=== PATIENT | female | born 1980 | race African-American/Black ===

== ENCOUNTER 2016-05-16 23:16 | Emergency (ER) | payer SELFPAY ==
[~2016-05-16] VITALS: Ht 170.2 cm; Wt 154.2 kg
--- NOTE | 2016-05-17 00:10 | PHYS DOC ---
Past Medical History Past Medical History: Anxiety, Bronchitis, Depression, Other Additional Past Medical Histor: ptsd Past Surgical History: Additional Past Surgical Histo: c-sec 2006 and 2009 Alcohol Use: Heavy Drug Use: Cocaine, Marijuana Adult General Chief Complaint Chief Complaint: UPPER EXTREMITY PAIN [facility] HPI Patient is a 35 year old female with history of bronchitis asthma, depression and anxiety who presents today with complaints of left upper tarso pain including upper extremity that has been going on for months. Patient states the pain is worse when she is moving her left upper extremity. She states she sleeps on her left side including the left upper extremity and that could be causing the pain too. She states she has gained weight recently and as result of sleeping on her left upper extremity the weight could also be increasing her pain to the left upper extremity. She states she's been under a lot of stress recently especially from work and personal life. She states she snorts cocaine and smokes marijuana on frequent basis. She states she also smokes cigarettes. The last time she used this drugs is 2 days ago. Patient denies any alcohol use. Denies any chance she is , she states she has a Mirena. She also states she is a smoker. Patient denies any fever coughing or congestion. PCP none Review of Systems Review of Systems Constitutional: Denies fever or chills [] Eyes: Denies change in visual acuity, redness, or eye pain [] HENT: Denies nasal congestion or sore throat [] Respiratory: Denies cough or shortness of breath [] Cardiovascular: No additional information not addressed in HPI [] GI: Denies abdominal pain, nausea, vomiting, bloody stools or diarrhea [] : Denies dysuria or hematuria [] Musculoskeletal: left side pain Integument: Denies rash or skin lesions [] Neurologic: Denies headache, focal weakness or sensory changes [] Endocrine: Denies polyuria or polydipsia [] Allergies Allergies Allergies Coded Allergies Type Severity Reaction Last Updated Verified No Known Drug Allergies 03/20/13 No Physical Exam Physical Exam Constitutional: Well developed, well nourished, no acute distress, non-toxic appearance. [] HENT: Normocephalic, atraumatic, bilateral external ears normal, oropharynx moist, no oral exudates, nose normal. [] Eyes: PERRLA, EOMI, conjunctiva normal, no discharge. [] Neck: Normal range of motion, no tenderness, supple, no stridor. [] Cardiovascular:Heart rate regular rhythm, no murmur [] Lungs & Thorax: Bilateral breath sounds clear to auscultation [] Abdomen: Bowel sounds normal, soft, no tenderness, no masses, no pulsatile masses. [] Skin: Warm, dry, no erythema, no rash. [] Back: No tenderness, no CVA tenderness. [] Extremities: No tenderness, no cyanosis, no clubbing, ROM intact, no edema. [] Neurologic: Alert and oriented X 3, normal motor function, normal sensory function, no focal deficits noted. [] Psychologic: Affect normal, judgement normal, mood normal. [] Current Patient Data Vital Signs Vital Signs Date Time Temp Pulse Resp B/P Pulse Ox O2 Delivery O2 Flow Rate FiO2 05/16/16 23:38 98.5 82 18 155/81 100 Room Air 98.5 Lab Values Laboratory Tests Test 05/17/16 00:30 05/17/16 00:31 05/17/16 00:32 POC Hemoglobin 12.6g/dL (12-15) POC Hematocrit 37% (36-40) POC Sodium 142mmol/L (135-145) POC Potassium 3.8mmol/L (3.5-5.0) POC Chloride 103mmol/L (98-110) POC Total CO2 30mmol/L (23-32) Anion Gap 14mmol/L (6-14) POC Blood Urea Nitrogen 16mg/dL (8-26) POC Creatinine 1.2mg/dL (0.5-1.4) Glucose Level 99mg/dL (70-99) POC Ionized Calcium (Drew) 1.15mmol/L (1.13-1.32) POC Urine HCG, Qualitative hcg negative (Negative) POC Troponin I 0.00ng/ml (<0.08) Laboratory Tests 05/17/16 00:30 EKG EKG [] Radiology/Procedures Radiology/Procedures [] Course & Med Decision Making Course & Med Decision Making Pertinent Labs and Imaging studies reviewed. (See chart for details) Patient is in the ED with complaints of pain on her left upper side including left upper extremity. Patient's pain is very muscle skeletal. Most of eat she attributes to her sleeping position as well as weight gain. We did talk about the importance of losing weight. We talked about the importance of smoking cessation and avoid doing drugs. 23:[address] Valdivia sinus rate them, heart rate 76, no STEMI Chest x-ray interpreted by Dr. Valdivia is negative for any acute findings. Chem 8 and troponin are normal. Patient was discharged with Flexeril and naproxen. Follow-up with her PCP in one week. Dragon Disclaimer Dragon Disclaimer This electronic medical record was generated, in whole or in part, using a voice recognition dictation system. Departure Departure Impression: Primary Impression: Extremity pain Additional Impressions: Drug abuse Smoking addiction Disposition: HOME, SELF-CARE Condition: STABLE Referrals: NO PCP (PCP) Follow-up with your doctor in the next 1-7 days Patient Instructions: Musculoskeletal Pain Additional Instructions: You were seen for musculoskeletal pain of the left upper extremity, and upper body. Follow-up with your own doctor in the next 7 days. Avoid doing drugs, or smoking. Exercise more often. Eat healthy meals. Come back to the emergency room for any concerning symptoms. Scripts Naproxen 500 Mg Tablet.dr1 Tab PO BID #60 TAB Ref 1 Prov:SANDIE HER APRN 05/17/16 Cyclobenzaprine Hcl 10 Mg Tablet1 Tab PO TID #30 TAB Prov:SANDIE HER APRN 05/17/16 Problem Qualifiers Primary Impression: Extremity pain Extremity pain location: upper extremity Laterality: left Qualified Code: M79.602 - Pain in left arm SANDIE HER APRN May 17, 2016 00:10
[2016-05-17 00:36] LABS: POTASSIUM ISTAT 3.8 mmol/L (3.5-5.0)
[2016-05-17 00:46] LABS: BARBITURATES NEG (NEG); BENZODIAZEPINES NEG (NEG); CANNABINOIDS POS (NEG); COCAINE NEG (NEG); METHADONE NEG (NEG); OPIATES NEG (NEG); PHENCYCLIDINE NEG (NEG)
[2016-05-17 00:51] LABS: ETHANOL, URINE NEG (NEG)
[2016-05-17] MEDS ORDERED: CYCL10TA2 PO (00:52)
[2016-05-17] MEDS ORDERED: NAPR500T8 PO (00:52)
[2016-05-17 01:00] VITALS: BP 146/82
--- NOTE | 2016-05-17 06:29 | EKG ---
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
--- NOTE | 2016-05-17 07:33 | RAD ---
2 view CXR: Clinical indications: Chest pain tonight. Comparison: June 25, 2009. Findings: No acute lung infiltrate or pleural effusion or pulmonary edema or lung mass or pneumothorax is seen. The heart size, pulmonary vasculature, mediastinum and both kaila are unremarkable. The osseous structures appear intact. Impression: No acute radiographic abnormality is seen.
== END 2016-05-17 01:04 | disposition home or self-care (01) ==
LOC: ER 23:16
DX: M79.602 Pain in left arm (principal); F12.10 Cannabis abuse, uncomplicated; F14.10 Cocaine abuse, uncomplicated; F17.210 Nicotine dependence, cigarettes, uncomplicated; F10.10 Alcohol abuse, uncomplicated; J45.909 Unspecified asthma, uncomplicated; F43.10 Post-traumatic stress disorder, unspecified
CPT/HCPCS: 71020; 80047; 81025; 84484; 93005; 99285; G0481

== ENCOUNTER 2017-06-16 20:51 | Emergency (ER) | payer BC ==
[2017-06-16] MEDS: ACETAMINOPHEN 325 MG TABLET. PO (22:30)
[2017-06-16 22:58] LABS: ADD MAN DIFF? NO
[2017-06-16 22:59] LABS: BASO # 0.1 x10^3/uL (0.0-0.2); BASO % 1 % (0-3); EOS # 0.3 x10^3/uL (0.0-0.7); EOS % 3 % (0-3); HEMATOCRIT 37.6 % (36.0-47.0); HEMOGLOBIN 12.3 g/dL (12.0-15.5); LYMPH # 3.5 x10^3/uL (1.0-4.8); LYMPH % 32 % (24-48); MEAN CORPUSCULAR HEMOGLOBIN 30 pg (25-35); MEAN CORPUSCULAR HGB CONC 33 g/dL (31-37); MEAN CORPUSCULAR VOLUME 91 fL (79-100); MONO # 0.8 x10^3/uL (0.0-1.1); MONO % 8 % (0-9); NEUT # 6.2 x10^3uL (1.8-7.7); NEUT % 57 % (31-73); PLATELET COUNT 251 x10^3/uL (140-400); RED BLOOD COUNT 4.15 x10^6/uL (3.50-5.40); RED CELL DISTRIBUTION WIDTH 14.7 % (11.5-14.5); WHITE BLOOD COUNT 10.8 x10^3/uL (4.0-11.0)
[2017-06-16 23:11] LABS: ANION GAP 8 (6-14); BLOOD UREA NITROGEN 15 mg/dL (7-20); CARBON DIOXIDE 27 mmol/L (21-32); CHLORIDE 107 mmol/L (98-107); CREATININE 1.3 mg/dL (0.6-1.0); GFR 56.4; GLUCOSE 120 mg/dL (70-99); POTASSIUM 4.3 mmol/L (3.5-5.1); SODIUM 142 mmol/L (136-145)
[2017-06-16 23:19] LABS: C-REACTIVE PROTEIN 2.6 mg/L (0-3.3)
== END 2017-06-16 23:45 | disposition home or self-care (01) ==
LOC: ER 20:51
DX: R10.2 Pelvic and perineal pain (principal); G89.29 Other chronic pain; K62.89 Other specified diseases of anus and rectum; F41.9 Anxiety disorder, unspecified; F32.9 Major depressive disorder, single episode, unspecified; F43.10 Post-traumatic stress disorder, unspecified; F14.10 Cocaine abuse, uncomplicated; E66.9 Obesity, unspecified; Z68.43 Body mass index [BMI] 50.0-59.9, adult
CPT/HCPCS: 36415; 76856; 80048; 85025; 86140; 99285-25